=== PATIENT | female | born 1950 | race Caucasian/White ===

== ENCOUNTER 2016-10-12 07:50 | Inpatient (IN) | payer OTHER ==
--- NOTE | 2016-09-08 08:51 | PAT Medication Instructions ---
Service Date Sep 08, 2016. Current Home Medication List Albuterol Sulfate (Proair Respiclick), 2 PUFFS INH Q4 PRN for SOB/Wheezing Aspirin Enteric Coated (Ecotrin Or Generic *), 81 MG PO QPM Calcitriol (Rocaltrol Cap), 0.25 MCG PO MWF Calcium/Vitamin D (Caltrate 600 Plus *), 1 TAB PO BID Escitalopram (Lexapro), 10 MG PO QPM Ferrous Sulfate (Iron), 1 TAB PO BID Fish Oil ([place]-3), 1 CAP PO BID Glimepiride (Glimepiride), 8 TAB PO QAM Montelukast Sodium (Montelukast Sodium), 1 TAB PO HS Oxygen (Oxygen), 2 LITERS NA HS Ranitidine (Zantac), 150 MG PO BID Medication Instructions For Your Scheduled Surgery - Hold the following medications 2 weeks prior to surgery: Fish Oil ([place]-3), 1 CAP PO BID - Hold the following medications the morning of surgery: Calcitriol (Rocaltrol Cap), 0.25 MCG PO MWF Glimepiride (Glimepiride), 8 TAB PO QAM Ferrous Sulfate (Iron), 1 TAB PO BID Calcium/Vitamin D (Caltrate 600 Plus *), 1 TAB PO BID - Take the following medications the morning of surgery with a sip of water OTHERWISE NOTHING TO EAT OR DRINK AFTER MIDNIGHT: Ranitidine (Zantac), 150 MG PO BID Albuterol Sulfate (Proair Respiclick), 2 PUFFS INH Q4 PRN for SOB/Wheezing (use if needed; BRING TO HOSPITAL) - Take the following medications as scheduled the night before surgery: Ranitidine (Zantac), 150 MG PO BID Montelukast Sodium (Montelukast Sodium), 1 TAB PO HS Aspirin Enteric Coated (Ecotrin Or Generic *), 81 MG PO QPM Ferrous Sulfate (Iron), 1 TAB PO BID Escitalopram (Lexapro), 10 MG PO QPM Calcium/Vitamin D (Caltrate 600 Plus *), 1 TAB PO BID Albuterol Sulfate (Proair Respiclick), 2 PUFFS INH Q4 PRN for SOB/Wheezing If you have any questions please call us at [phone] (Kelly Duong PA-C) or [phone] or [phone]
--- NOTE | 2016-09-08 09:19 | DIAGNOSTIC IMAGING REPORT ---
TWO VIEW CHEST CLINICAL HISTORY: Preoperative examination. FINDINGS: PA and lateral chest radiographs are compared to study dated 02/15/2011. The heart is mildly enlarged and there is atherosclerotic calcification of the thoracic aorta. The pulmonary vasculature is noncongested. Linear atelectasis versus scarring is noted in the left lung base. The lungs and pleural spaces are otherwise clear. There is no pneumothorax. The skeletal structures are osteopenic. Degenerative change is noted throughout the thoracic spine. IMPRESSION: Mild cardiac enlargement with no active disease in the chest. Electronically signed by: Elvin Malloy M.D. 09/08/2016 9:17 AM
[2016-09-08 09:22] LABS: BASO % 0.5 %; BASO ABS # 0.04 K/uL (0-0.2); COMPLETE YES; EOS % 3.9 %; HEMATOCRIT 38.7 % (37-47); IG% 0.3 %; LYMPH % 20.5 %; LYMPH ABS # 1.53 K/uL (1.2-3.4); MEAN CELL VOLUME 90.2 fL (80-100); MEAN CORPUSCULAR HEMOGLOBIN 29.4 pg (25-34); MEAN CORPUSCULAR HGB CONC 32.6 g/dl (32-36); MEAN PLATELET VOLUME 10.7 fL (7.4-10.4); MONO % 5.4 %; NEUT % 69.4 %; PLATELET COUNT 241 K/uL (130-400); RED BLOOD COUNT 4.29 M/uL (4.2-5.4); WHITE BLOOD COUNT 7.46 K/uL (4.8-10.8)
[2016-09-08 09:25] LABS: URINE APPEARANCE CLEAR (CLEAR); URINE BILIRUBIN NEG (NEG); URINE COLOR YELLOW; URINE EPITHELIAL CELL AUTO 20-30 /lpf (0-5); URINE NITRITE NEG (NEG); URINE PH 5.5 (4.5-7.5); URINE SPECIFIC GRAVITY 1.009 (1.000-1.030); UROBILINOGEN NEG (NEG)
[2016-09-08 09:26] LABS: MANUAL MICROSCOPIC REQUIRED? NO; REVIEW REQ? NO
[2016-09-08 09:53] LABS: BUN/CREATININE RATIO 15.2 (10-20); CREATININE 1.8 mg/dl (0.60-1.20); POTASSIUM 4.2 mmol/L (3.5-5.1)
[2016-09-08 10:24] LABS: CALCIUM 9.4 mg/dl (8.5-10.1)
--- NOTE | 2016-10-08 09:06 | HISTORY & PHYSICAL EXAMINATION ---
DATE OF ADMISSION: 10/12/2016 The patient presents to our office with a complaint of lower back pain down the right leg to the foot. This has been ongoing for the past year. No specific injury. Walking reproduces her pain. Stopping and resting alleviates it. 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 She has trialed injections with Dr. Valadez, which provide 1-2 days of relief. Denies bowel or bladder dysfunction. PAST MEDICAL HISTORY: The patient's medical history is significant for arthritis, depression, diabetes, migraines, hypertension, hypercholesterolemia. SURGICAL HISTORY: Significant for bilateral knee replacements, hysterectomy, cholecystectomy. ALLERGIES: MORPHINE. CURRENT MEDICATIONS: Include aspirin 81 mg a day, calcium plus vitamin D 2 tabs daily, lisinopril 5 mg daily, metformin 1000 mg twice a day, oxycodone 10 mg q. 12 hours, Zocor 10 mg in the evening, Coumadin 5 mg as directed. SOCIAL HISTORY: She is . Again, self-employed, cleaning business. Alcohol use none. Tobacco, denies. FAMILY HISTORY: Significant for arthritis, diabetes, high cholesterol, cancer. REVIEW OF SYSTEMS: Significant for fatigue, headaches, nasal congestion, coughing, difficulty walking, depression. PHYSICAL EXAMINATION: VITAL SIGNS: 5 foot tall, 110 pounds. HEENT: Speech appropriate. CARDIOPULMONARY: No gross abnormalities. ABDOMEN: Soft, nondistended. GENITOURINARY: Deferred. NEUROLOGIC: Cranial nerves II-XII grossly intact. MUSCULOSKELETAL: Strength is intact bilateral lower extremities. No focal atrophy. She does favor the right side when ambulating around the room. Neurovascularly intact. ASSESSMENT: Severe stenosis L4-5, degenerative changes L2 to the sacrum, grade 1 spondylolisthesis of L4-5, moderate stenosis L3-4 with retrolisthesis, moderate stenosis L5-S1 with a left paracentral disc herniation. PLAN: At this point in time, she has failed conservative therapy and may consider surgical intervention. This would require lumbar decompression and fusion of L2-3, L3-4, L4-5 and L5-S1. Risks, benefits, pros, cons, and alternatives were outlined in detail. She would like to proceed with the above-mentioned surgical intervention.
[~2016-10-12] VITALS: Ht 152.4 cm; Wt 70.3 kg
[2016-10-12] VITALS (9 sets, daily range): BP systolic 92–194; BP diastolic 57–105; PULSE 67–87; TEMP 36.4–36.9; O2SAT 92–100
--- NOTE | 2016-10-12 07:28 | History & Physical Bridge Note ---
H&P Re-Evaluation Bridge Note: I have examined the patient, reviewed the History & Physical and in the interval since the performance of the History & Physical I have noted the following changes of clinical significance: No changes noted
[~2016-10-12 07:50] MED LIST: ALBU18002 INH; ASPEC81 PO; CALC0.2510 PO; CEFAZOLIN 1000MG/55 ML D5W IV SCH; CLTP PO; ESCI10TA17 PO; FERR1TAB23 PO; GLIM4TAB2 PO; METO1TAB31 PO; MONT1TAB5 PO; OMEG10007 PO; OXGN; SODIUM CHLORIDE 0.9% 1000ML 1,000 ML IV SCH; ZNTT/150 PO
[2016-10-12] MEDS ORDERED: SIMV10TA2 PO (08:04)
[2016-10-12] MEDS ORDERED: DEXAMETHASONE SOD INJ 4 MG/ML VIAL ONE (08:24)
[2016-10-12] MEDS ORDERED: GLYCOPYRROLATE INJ 0.2 MG/ML VIAL ONE ×2 (08:24→12:02)
[2016-10-12] MEDS ORDERED: ONDANSETRON INJ 2 MG/ML 2 ML VIAL ONE (08:24)
[2016-10-12] MEDS ORDERED: NEOSTIGMINE METHYLSULFATE 1 MG/ML 10ML VIAL ONE (08:24)
[2016-10-12] MEDS ORDERED: ROCURONIUM BROMIDE 10 MG/ML 5 ML VIAL ONE ×2 (08:24→10:53)
[2016-10-12] MEDS ORDERED: PROPOFOL IV EMULSION 10 MG/ML 20 ML VIAL IV ONE (08:24)
[2016-10-12] MEDS ORDERED: MIDAZOLAM HCL 1 MG/ML 2ML VIAL ONE (08:24)
[2016-10-12] MEDS ORDERED: FENTANYL CITRATE INJ 50 MCG/1 ML 2 ML VIAL ONE ×2 (08:24→11:02)
[2016-10-12] MEDS ORDERED: LIDOCAINE HCL 2% 2 ML VIAL (20MG/ML) ONE (08:24)
[2016-10-12] MEDS ORDERED: FENTANYL CITRATE INJ 50 MCG/1 ML 2 ML VIAL IV PRN (08:30)
[2016-10-12] MEDS ORDERED: ONDANSETRON INJ 2 MG/ML 2 ML VIAL IV PRN ×2 (08:30→12:00)
[2016-10-12] MEDS ORDERED: EpHEDrine SULFATE INJ 50 MG/ML AMP IV PRN (08:30)
[2016-10-12] MEDS ORDERED: ATROPINE SULFATE 0.1 MG/ML 5ML SYR IV PRN (08:30)
[2016-10-12] MEDS ORDERED: EpHEDrine SULFATE 50MG/5ML SYR ONE (09:52)
[2016-10-12] MEDS ORDERED: PHENYLEPHRINE 100MCG/ML 5ML SYR ONE (09:52)
[2016-10-12] MEDS ORDERED: BUPIVACAINE/EPINEPHRINE 0.5% MPF 1:200,000 30 ML VIAL INJ ONE ×2 (10:34→13:29)
[2016-10-12] MEDS ORDERED: SODIUM CHLORIDE 0.9% 1000ML 1,000 ML IV SCH ×2 (11:53)
--- NOTE | 2016-10-12 11:53 | [facility] Post Operative Brief Note ---
Immediate Operative Summary Operative Date Oct 12, 2016. Pre-Operative Diagnosis Severe Spinal Stenosis Post-Operative Diagnosis Severe Spinal Stenosis Procedure(s) Performed L2-S1 Lumbar Laminectomy, Decompression, Pedicle Screw Fixation, Placement of Interbody Device, Posterolateral Fusion, Application of Autograft versus Allograft, Bone Morphogenetic Protein, Iliac Guide [place] Fixation Latex Allergy - Itching Surgeon Dr. Zhao Flame Annealing Machine Setter Surgeon(s) MIREYA Pratt Estimated Blood Loss 300 Findings stenosis Specimens non per surgeon
[2016-10-12] MEDS ORDERED: NALOXONE HCL 0.4 MG/1 ML VIAL/CARP IV PRN ×3 (12:00)
[2016-10-12] MEDS ORDERED: SOD PHOSPHATE/SOD BIPHOSPHATE ENEMA 132 ML BTL PR PRN (12:00)
[2016-10-12] MEDS ORDERED: hydrOXYzine HCL 25 MG TAB PO PRN (12:00)
[2016-10-12] MEDS ORDERED: FAMOTIDINE 20 MG TAB PO PRN (12:00)
[2016-10-12] MEDS ORDERED: HYDROmorphone INJ 0.5 MG/0.5 ML SYR IV PRN (12:00)
[2016-10-12] MEDS ORDERED: METOCLOPRAMIDE HCL INJ 5 MG/ML 2 ML VIAL IV PRN (12:00)
[2016-10-12] MEDS ORDERED: LORAZEPAM 0.5 MG TAB PO PRN (12:00)
[2016-10-12] MEDS ORDERED: PROMETHAZINE HCL INJ 12.5 MG in SODIUM CHLORIDE 0.9% 50ML 50 ML IV PRN (12:00)
[2016-10-12] MEDS ORDERED: MAGNESIUM HYDROXIDE SUSP 30 ML UDC PO PRN (12:00)
[2016-10-12] MEDS ORDERED: LORAZEPAM INJ 0.5 MG in SYRINGE 0 ML IV PRN (12:00)
[2016-10-12] MEDS ORDERED: DO NOT ADMINISTER PNEUMOCOCCAL VACCINE PRN ×2 (12:00)
[2016-10-12] MEDS ORDERED: ALUMINUM/MAGNESIUM SUSP 30 ML UDC PO PRN (12:00)
[2016-10-12] MEDS ORDERED: BISACODYL 10 MG SUPP PR PRN (12:00)
[2016-10-12] MEDS ORDERED: ACETAMINOPHEN 500 MG TAB PO PRN (12:00)
[2016-10-12] MEDS ORDERED: DO NOT ADMINISTER FLU VACCINE PRN ×3 (12:00)
[2016-10-12] MEDS ORDERED: ACETAMINOPHEN IV 100 ML IV PRN (12:00)
[2016-10-12] MEDS ORDERED: HYDROmorphone HCL 0.5MG/ML 50 ML CASSETTE IV PRN ×2 (12:00)
[2016-10-12] MEDS ORDERED: BACITRACIN 50000 UNIT VIAL IR ONE (12:10)
[2016-10-12] MEDS ORDERED: FLOSEAL HEMOSTATIC MATRIX 10ML TOP ONE (12:10)
--- NOTE | 2016-10-12 12:19 | OPERATIVE REPORT ---
DATE OF OPERATION: 10/12/2016 PREOPERATIVE DIAGNOSES: Spinal stenosis, spondylolisthesis. POSTOPERATIVE DIAGNOSES: Same. PROCEDURES PERFORMED: 1. Lumbar decompression and medial facetectomy and foraminotomy L2-3, L3-4, L4-5, L5-S1. 2. Posterior spinal fusion L2-3, L3-4, L4-5, L5-S1. 3. Bilateral SI joint fusion. 4. Placement of posterior segmental instrumentation using Medicrea rods and screws, L2, L3, L4, L5 and S1 with bilateral iliac bolts as well as a crosslink. 5. Placement interbody fusion L5-S1. 6. Placement of PEEK cage 10 x 22 mm at L5-S1. 7. Placement of locally harvested morcellized autograft posterior gutters. 8. Placement of Infuse collagen sponge combined with Mastergraft in the posterior gutters and Gayla bone grafting in the interbody space. SURGEON: Dr. Issac Zhao. BEATER ROOM HELPER: MIREYA Cardona. Due to the complex nature of the procedure, the entire surgery was performed with the teachers' assistant of MIREYA Cardona. The hardware sales assistant, under direct supervision, was involved in the actual performance of all aspects of the surgical procedure including hemostasis, tissue retraction and incision, instrument management, patient positioning, and wound closure. ANESTHESIA: General. DISPOSITION: The patient awakened and taken to PACU in stable condition. HISTORY OF PATIENT'S PROBLEMS: This is a 66-year-old female who presents with above-mentioned diagnoses after failing an extensive course of nonoperative care, elected to undergo the above-mentioned procedure. Risks, benefits, pros, cons, and alternatives were outlined in detail preoperatively. DESCRIPTION OF PROCEDURE: The patient was met preoperatively, case discussed and all questions were addressed. At that point, the patient was taken back to operative suite and after undergoing successful general endotracheal intubation via department of anesthesia was placed in prone position on Konstantin table atop Donte frame. All bony prominences were well padded and the eyes were inspected to ensure there was no external pressure placed upon them. At this point, the lumbar spine was prepped and draped in normal sterile fashion. Sharp dissection with the assistance of Bovie cautery was performed down to and exposing the lamina and transverse processes of L2, L3, L4, L5 and sacral ala bilaterally. From a caudal to cephalad fashion, complete laminectomy of L5, L4, L3 and L2 was performed addressing severe lateral recess foraminal disease. Pedicle screws were then placed in L2, L3, L4, L5 and S1 levels bilaterally with assistance of fluoroscopy as well as bilateral iliac bolts. Then through a transforaminal approach on the right, a complete discectomy of L5-S1 was performed, endplates curetted to subcortical bleeding bone and a 10 x 22 mm PEEK cage filled with Gayla bone grafting tapped into position. The appropriate size rods were then placed, locked into final position bilaterally and the posterior aspect of the bilateral SI joints was exposed, burred to subcortical bleeding bone, and packed with Infuse collagen sponge and Mastergraft as well as a burning the transverse processes of L2, L3, L4, L5, S1 and sacral ala bilaterally. Infuse collagen sponge combined with Mastergraft was also place in the posterior gutters of this region as well as crosslink was locked into position. A 7 flat TAM drain inserted. Incision was closed with 1-0 Vicryl in the fascia, 2-0 Vicryl subcutaneously, 4-0 Monocryl for final skin closure. Steri-Strips and sterile dressing placed. The patient was awakened and taken to PACU in stable condition. I attest to the content of the Intraoperative Record and any orders documented therein. Any exceptio ns are noted below.
[2016-10-12] MEDS ORDERED: SODIUM CHLORIDE 0.9% INJ 10 ML VIAL ONE (12:21)
[2016-10-12] MEDS ORDERED: NALOXONE HCL 0.4 MG/1 ML VIAL/CARP ONE (12:21)
[2016-10-12] MEDS ORDERED: ESMOLOL HCL 10 MG/ML 10 ML VIAL ONE (12:32)
[2016-10-12] MEDS ORDERED: HYDROmorphone HCL 0.5MG/ML 50 ML CASSETTE ONE (12:37)
--- NOTE | 2016-10-12 12:38 | DIAGNOSTIC IMAGING REPORT ---
INTRAOPERATIVE RADIOGRAPHS CLINICAL HISTORY: L2-S1 spinal fusion. Fluoroscopy time: 29 seconds. FINDINGS: 4 spot fluoroscopic views of the lumbar spine are presented. There are postoperative changes from L5 to S1 discectomy with laminectomy and posterior fusion from L2 through S1. Interpedicular screws are present at all levels. Iliac bolts are in place. The orthopedic hardware appears intact. IMPRESSION: Intraoperative images from L2 to S1 spinal fusion as above. Electronically signed by: Elvin Malloy M.D. 10/12/2016 12:36 PM Dictated Date/Time: 10/12/2016 12:35 PM
[2016-10-12] MEDS ORDERED: NURSING VERBAL MED ORDER ONE ×2 (13:15→13:30)
[2016-10-12] MEDS: SODIUM CHLORIDE 0.9% 1000ML 1,000 ML IV SCH ×2 (13:29→18:19)
--- NOTE | 2016-10-12 13:34 | Anesthesiology Progress Note ---
Anesthesia Post Op Note Date & Time Oct 12, 2016 at 13:33 Vital Signs Pain Intensity: 1 Vital Signs Past 12 Hours Date Time Temp Pulse Resp B/P Pulse Ox O2 Delivery O2 Flow Rate FiO2 10/12/16 12:58 36.5 114/70 10/12/16 12:55 92 19 10/12/16 12:55 92 19 138/66 98 10/12/16 12:53 114/70 10/12/16 12:50 90 19 140/66 100 10/12/16 12:50 91 19 10/12/16 12:48 112/69 10/12/16 12:45 94 19 10/12/16 12:45 95 19 145/67 99 10/12/16 12:43 115/72 10/12/16 12:40 94 19 142/66 98 10/12/16 12:40 94 19 10/12/16 12:38 112/68 10/12/16 12:35 91 19 97 10/12/16 12:35 91 19 10/12/16 12:33 122/72 10/12/16 12:30 97 19 10/12/16 12:30 97 19 98 10/12/16 12:28 133/78 10/12/16 12:25 36.5 108 16 133/78 98 Mask 10 10/12/16 08:49 161/80 10/12/16 08:17 36.4 71 20 194/105 97 Room Air Notes Mental Status: alert / awake / arousable, participated in evaluation Pt Amnestic to Procedure: Yes Nausea / Vomiting: adequately controlled Pain: adequately controlled Airway Patency, RR, SpO2: stable & adequate BP & HR: stable & adequate Hydration State: stable & adequate Anesthetic Complications: no major complications apparent
[2016-10-12] MEDS ORDERED: MEPERIDINE HCL 25 MG/ML CARP IV PRN (15:15)
[2016-10-12] MEDS: DEXAMETHASONE INJ 6 MG in SYRINGE 0 ML IV SCH (17:33)
[2016-10-12] MEDS: CEFAZOLIN IV 1,000 MG in DEXTROSE 5% 50ML 50 ML IV SCH (17:33)
[2016-10-12] MEDS: RANITIDINE HCL 150 MG TAB PO SCH (21:03)
[2016-10-12] MEDS: ESCITALOPRAM OXALATE 10 MG TAB PO SCH (21:03)
[2016-10-12] MEDS: MONTELUKAST SOD 10 MG TAB PO SCH (21:03)
[2016-10-12] MEDS: DOCUSATE SODIUM/SENNA 50/8.6MG TAB PO SCH (21:04)
[2016-10-12] MEDS: ASPIRIN 81 MG ECTAB PO SCH (21:04)
[2016-10-12] MEDS: OXYCODONE HCL IR 5 MG TAB (IMMEDIATE RELEASE) PO PRN (23:29)
[2016-10-13] MEDS: SODIUM CHLORIDE 0.9% 1000ML 1,000 ML IV SCH (01:15)
[2016-10-13] MEDS: CEFAZOLIN IV 1,000 MG in DEXTROSE 5% 50ML 50 ML IV SCH (01:15)
[2016-10-13] MEDS: DEXAMETHASONE INJ 6 MG in SYRINGE 0 ML IV SCH ×2 (01:15→09:27)
[2016-10-13 02:40] VITALS: BP 115/71; PULSE 83; TEMP 36.5; O2SAT 97
[2016-10-13] MEDS ORDERED: DC PCA ONE (06:00)
[2016-10-13] MEDS ORDERED: NURSING VERBAL MED ORDER ONE (06:15)
[2016-10-13 06:24] LABS: BASO % 0.1 %; BASO ABS # 0.01 K/uL (0-0.2); COMPLETE YES; HEMATOCRIT 31.5 % (37-47); IG% 0.4 %; LYMPH % 3.7 %; LYMPH ABS # 0.51 K/uL (1.2-3.4); MEAN CELL VOLUME 93.8 fL (80-100); MEAN CORPUSCULAR HEMOGLOBIN 30.1 pg (25-34); MEAN CORPUSCULAR HGB CONC 32.1 g/dl (32-36); MEAN PLATELET VOLUME 10.9 fL (7.4-10.4); NEUT % 93.8 %; PLATELET COUNT 202 K/uL (130-400); RED BLOOD COUNT 3.36 M/uL (4.2-5.4); WHITE BLOOD COUNT 13.67 K/uL (4.8-10.8)
[2016-10-13 06:56] LABS: CREATININE 1.8 mg/dl (0.60-1.20)
[2016-10-13 06:57] LABS: BUN/CREATININE RATIO 20.4 (10-20); CALCIUM 7.6 mg/dl (8.5-10.1); POTASSIUM 4.2 mmol/L (3.5-5.1)
[2016-10-13 07:06] LABS: BETA-HYDROXYBUTYRATE 1.01 mg/dL (0.2-2.81)
[2016-10-13 08:01] VITALS: BP 114/70; PULSE 90; TEMP 36.6; O2SAT 97
--- NOTE | 2016-10-13 08:17 | PROGRESS NOTE ---
DATE: 10/13/2016 Postop day 1. Back pain is controlled. Leg pain improved. Vital signs stable. T-max 36.6. TAM drained 100 mL over the last shift. Hematocrit this a.m. is 31.5. On exam, the patient is in chair at bedside, is quite comfortable, has good strength to testing. ASSESSMENT: Status post multilevel lumbar decompression and fusion. PLAN: At this time, we will initiate physical therapy, advance her bowel regimen, anticipate discharge latter half of this week. We will monitor her H\T\H.
[2016-10-13] MEDS: CALCITRIOL 0.25 MCG CAP PO SCH (08:27)
[2016-10-13] MEDS: RANITIDINE HCL 150 MG TAB PO SCH ×2 (08:27→21:07)
[2016-10-13] MEDS: SIMVASTATIN 10 MG TAB PO SCH (08:27)
[2016-10-13] MEDS: METOPROLOL SUCC 25MG EXT REL TAB PO SCH (08:28)
[2016-10-13] MEDS: OXYCODONE HCL IR 5 MG TAB (IMMEDIATE RELEASE) PO PRN ×2 (09:27→16:55)
--- NOTE | 2016-10-13 09:47 | Anesthesiology Progress Note ---
Anesthesia Post Op Note Date & Time Oct 13, 2016 at 09:45 Vital Signs Pain Intensity: 5.0 Vital Signs Past 12 Hours Date Time Temp Pulse Resp B/P Pulse Ox O2 Delivery O2 Flow Rate FiO2 10/13/16 08:01 36.6 90 16 114/70 97 Room Air 10/13/16 07:22 Nasal Cannula 3.0 10/13/16 02:40 36.5 83 16 115/71 97 Nasal Cannula 2.0 10/12/16 23:30 Nasal Cannula 3.0 10/12/16 23:02 36.4 80 16 106/66 96 Nasal Cannula 2.0 Notes Mental Status: alert / awake / arousable, participated in evaluation Pt Amnestic to Procedure: Yes Nausea / Vomiting: adequately controlled Pain: adequately controlled Airway Patency, RR, SpO2: stable & adequate BP & HR: stable & adequate Hydration State: stable & adequate Anesthetic Complications: no major complications apparent
--- NOTE | 2016-10-13 10:52 | Clinical Documentation Query ---
RAFAEL Cobb : CLINICAL DOCUMENTATION QUERY Patient is a 66 year old female who on 10/12 underwent elective posterolateral lumbosacral fusion. Admission BUN, creatinine, and estimated GFR noted to be 27 mg/dl, 1.80 mg/dl, and 29 ml/min. There is no documented history of chronic kidney disease and historical EMR data from 2010 demonstrated normal renal function. Please clarify as clinically appropriate. In your clinical opinion is this patient being managed for: ( ) Acute kidney failure OR ( ) Chronic kidney disease stage 4 ( ) Other explanation of clinical findings (Please Explain) ( ) Unable to determine (Please Define) ( ) Need to Discuss ( ) Not Agree The medical record reflects the following clinical findings, treatment, and risk factors. Clinical Indicators: As above Treatment: IVF, serial chemistries. Risk Factors: Age, hypertension, diabetes, medications Please clarify and document your clinical opinion in the progress notes and discharge summary. Terms such as "probable", "suspected", "likely", "questionable", "possible", or "still to be ruled out" are acceptable. IF IN AGREEMENT, YOU MUST DOCUMENT ABOVE DIAGNOSTIC STATEMENT IN DAILY PROGRESS NOTES AND DISCHARGE SUMMARY. This document is not part of the patient's record. Thank You, Pedro Mathew, RICKY [phone]
[2016-10-13 11:18] VITALS: BMI 30.3
[2016-10-13 12:01] VITALS: BP 111/68; PULSE 74; TEMP 36.6; O2SAT 93
[2016-10-13] MEDS ORDERED: PHARMACY GLYCEMIC MGMT CONSULT PRN (12:15)
[2016-10-13] MEDS ORDERED: GLUCAGON FOR INJ 1 MG VIAL SQ PRN (12:15)
[2016-10-13] MEDS ORDERED: DEXTROSE 50% 50 ML SYR IV PRN (12:15)
[2016-10-13] MEDS ORDERED: GLUCOSE 10 TABS/TUBE PO PRN (12:15)
[2016-10-13] MEDS ORDERED: GLUCOSE 40% GEL 15 GM TUBE PO PRN (12:15)
[2016-10-13] MEDS ORDERED: INSULIN HUMAN REGULAR PER UNIT 10 UNITS in SYRINGE 9.9 ML IV SCH (13:00)
[2016-10-13] MEDS ORDERED: INSULIN ASPART 100 UNITS/ML 3 ML PEN SC SCH (13:15)
--- NOTE | 2016-10-13 13:23 | Pharmacy Progress Note ---
Glycemic Control Intl Consult Date of Service Oct 13, 2016. Scope Glycemic Pharmacist consulted by Dr Zhao on 10/13/16 for glycemic control and to write orders per [facility] inpatient glycemic control protocol Objective Weight (Kilograms): 70.300 Accuchecks BSG (last 24hrs): Test 10/12/16 13:23 10/13/16 05:23 10/13/16 07:46 10/13/16 12:48 Bedside Glucose 192 mg/dl (70-90) 339 mg/dl (70-90) 390 mg/dl (70-90) Random Glucose 322 mg/dl (70-99) Laboratory Data (last 24hrs) Test 10/13/16 05:23 Anion Gap 12.0 mmol/L BUN/Creatinine Ratio 20.4 Blood Urea Nitrogen 37 mg/dl Creatinine 1.80 mg/dl Potassium Level 4.2 mmol/L Sodium Level 140 mmol/L White Blood Count 13.67 K/uL Red Blood Count 3.36 M/uL Hemoglobin 10.1 g/dL Hematocrit 31.5 % Mean Corpuscular Volume 93.8 fL Mean Corpuscular Hemoglobin 30.1 pg Mean Corpuscular Hemoglobin Concent 32.1 g/dl Platelet Count 202 K/uL Mean Platelet Volume 10.9 fL Neutrophils (%) (Auto) 93.8 % Lymphocytes (%) (Auto) 3.7 % Monocytes (%) (Auto) 2.0 % Eosinophils (%) (Auto) 0.0 % Basophils (%) (Auto) 0.1 % Neutrophils # (Auto) 12.82 K/uL Lymphocytes # (Auto) 0.51 K/uL Monocytes # (Auto) 0.27 K/uL Eosinophils # (Auto) 0.00 K/uL Basophils # (Auto) 0.01 K/uL HbA1c pending 10/14/16 Recent Pertinent Medications Outpatient Anti-diabetic Regimen: * Glimepiride 8 ma qam * A1c = 7.3 % 08/11/16, repeat pending 10/14/16 to assess recent glycemic control The patient is currently receiving: * Basal insulin: none * Correctional Insulin: none * Prandial insulin: none * Oral Agents: none Risk Factors for Insulin Resistance: * Steroids: Dexamethasone 4 mg in OR 10/12, then 6 mg q8h x3, last dose 10/13 @0927 * Infection: no, had cefazolin perioperatively * IVF: NS @ 150 ml/hr, now dc'd * Recent Surgery: POD#1 spinal surgery * Diet:type 2 diabetic Assessment & Plan ASSESSMENT: * ADA & AACE recommend a goal blood sugar range 140-180 mg/dl for the majority of critically ill & non-critically ill patients. However, more stringent targets may be selected in individual cases. * 66 yo type 2 diabetic,fairly well-controlled in past on oral meds. A1c pending to assess recent glycemic control. BSG's over 300 due to lack of insulin coverage and steroid effect. Postprandial hyperglycemic effect of dexamethasone may persist 48-72 hr. Will give IV bolus for immediate effect and start weight-based Novolog coverage. Will reassess in am. PLAN FOR INPATIENT GLYCEMIC CONTROL: * Holding outpatient oral diabetes medications * No basal insulin at this time * Correctional Insulin with NOVOLOG per scale ACHS or Q6hrs while NPO * Goal Range: Low 110 mg/dL - High 150 mg/dL * Correction Factor: 35 mg/dL/unit * Nutritional / Prandial insulin per carb ratio of 1 unit per 11 grams CHO consumed Please note that the plan above was derived based on current level of insulin resistance and hospital stress. These recommendations are appropriate for inpatient admission only. Plan of care upon discharge will need to be reassessed to avoid potential outpatient hypo/hyperglycemia. Thank you.
[2016-10-13 15:06] VITALS: BP 116/69; PULSE 69; TEMP 36.6; O2SAT 91
[2016-10-13] MEDS: INSULIN ASPART 100 UNITS/ML 3 ML PEN SC SCH ×2 (18:01→21:12)
[2016-10-13] MEDS: ASPIRIN 81 MG ECTAB PO SCH (21:07)
[2016-10-13] MEDS: ESCITALOPRAM OXALATE 10 MG TAB PO SCH (21:07)
[2016-10-13] MEDS: MONTELUKAST SOD 10 MG TAB PO SCH (21:07)
[2016-10-13] MEDS: DOCUSATE SODIUM/SENNA 50/8.6MG TAB PO SCH (21:07)
[2016-10-13 23:25] VITALS: BP 130/74; PULSE 73; TEMP 36.7; O2SAT 96
[2016-10-14] MEDS ORDERED: INSULIN ASPART 100 UNITS/ML 3 ML PEN SC SCH (02:00)
[2016-10-14 03:40] VITALS: BP 114/71; PULSE 71; TEMP 36.6; O2SAT 98
[2016-10-14] MEDS: POLYETHYLENE (MIRALAX) 17 GM PACK PO SCH ×3 (05:19→17:41)
[2016-10-14] MEDS: OXYCODONE HCL IR 5 MG TAB (IMMEDIATE RELEASE) PO PRN ×2 (05:23→14:10)
[2016-10-14 06:48] VITALS: BP 132/76; PULSE 86; TEMP 36.6; O2SAT 96
[2016-10-14 07:31] LABS: ESTIMATED AVERAGE GLUCOSE 174 mg/dl; HA1C FLAG Normal (Normal)
[2016-10-14] MEDS: CALCITRIOL 0.25 MCG CAP PO SCH (07:38)
[2016-10-14] MEDS: METOPROLOL SUCC 25MG EXT REL TAB PO SCH (07:38)
[2016-10-14] MEDS: RANITIDINE HCL 150 MG TAB PO SCH ×2 (07:38→21:40)
[2016-10-14] MEDS: SIMVASTATIN 10 MG TAB PO SCH (07:38)
[2016-10-14] MEDS: INSULIN ASPART 100 UNITS/ML 3 ML PEN SC SCH ×4 (07:43→21:48)
[2016-10-14] MEDS ORDERED: RXC5 PO (07:50)
--- NOTE | 2016-10-14 07:51 | Discharge Instructions ---
Discharge Instructions Admission Reason for Admission: Lumbar Spinal Stenosis Discharge Discharge Diagnosis / Problem: stenosis Discharge Goals Goal(s): Improve function Activity Recommendations Activity Limitations: per Instructions/Follow-up section . Instructions / Follow-Up Instructions / Follow-Up ACTIVITY RECOMMENDATIONS: SELF CARE INSTRUCTIONS AFTER THORACIC/LUMBAR FUSIONS 1. You may walk to your tolerance. It is good exercise for your legs and back. Expect some back and intermittent leg aches and pains. 2. You may perform "counter-top" level activities (make a sandwich, kun with a project, etc.). 3. No bending or lifting of more than 10 pounds or back twisting of any nature (roll like a log when turning in bed). 4. You may ride in a car for 20-30 minutes at a time. No driving until after your first visit with your doctor. 5. Frequent changes of position and restricting sitting to 30 minutes at a time will help limit the amount of back spasms and stiffness you may experience. 6. You may discontinue the use of ambulatory aids (cane, crutches, etc.) once your strength and confidence allow. 7. You may business mgr the shower and let water strike your incision when you arrive home at least once daily. Do not take a tub bath, sit in a hot tub or go into a swimming pool until after your first recheck in the office. SPECIAL CARE INSTRUCTIONS: VERY IMPORTANT TO READ AND REVIEW A. Your surgical incision has been closed with a cosmetic suture under the skin that will dissolve in about 6 weeks. In 14 days, you can use a pair of clean scissors and cut the suture that is left outside of the skin at the ends of your incision. 1. The small skin tapes can be removed 7 days after surgery if they have not fallen off by that point. 2. You may keep the wound open to air as much as possible to promote healing after post-op day number 5 unless told otherwise by your doctor. 3. If you think the wound looks like it is becoming infected (redness or worsening drainage) and/or you are experiencing fever, chill or worsening back pain and muscle spasms, contact the office so that we may evaluate you as soon as possible. B. Complications are uncommon, but please contact us if you have any signs or symptoms of: 1. wound infection (fever higher than 102.5 degrees F, redness, separation of wound, drainage, or increasing pain from the incision) 2. blood clots in legs (pain, swelling, redness and warmth in legs) 3. urinary tract infection (fever higher than 102.5 degrees F, burning upon urination or increased frequency of urination) 4. nerve problems (inability to walk on your toes or heels, numbness, loss of bowel or bladder control) 5. any other symptoms that concern you C. Please call the office at if you have any concerns or questions about your operation or recovery. D. No smoking! Smoking drastically decreases the chance of a solid fusion. E. Do not take any anti-inflammatory medications (Indocin, Advil, Motrin, Aspirin, Naprosyn, etc.) as these may inhibit the chance of a solid fusion. Tylenol is okay to take for pain. MANAGING PAIN AFTER SPINAL SURGERY 1. Narcotic medication is intended for short-term use and will be provided for surgical pain. Surgical pain usually lasts for a period of 4-6 weeks. Narcotic medication includes Percocet, Vicodin, Darvocet, Tylenol #3 or Lortab. 2. Longer-term pain is more appropriately treated with non-narcotic medication such as Tylenol ES. 3. Muscle spasm is not appropriately treated with narcotics. Muscle relaxers such as Soma, Flexeril or Skelaxin can be used along with Tylenol ES. 4. Remember that we all live with some "aches and pains". This is not unusual or uncommon after an injury or as we get older. a. Back pain is expected and may include muscle spasms for 4 to 6 weeks after surgery. The pain should gradually improve. If the pain worsens for no apparent reason, please contact the office. b. Intermittent leg pain may also be experienced and should not be concerned about unless it worsens for no apparent reason. If so, please contact the office. 5. We will provide appropriate medication within the normal guidelines of their prescribed use. We will also be very cautious and aware of potential abuse and extended duration of patients' medication needs. a. Pain medications are for your comfort and to assist with sleep and rest so that the tissue can heal. They are not provided in order to return to normal activity and should not be used through the day. To do so or worsening pain at night can result from ongoing tissue damage and development of tolerance to the prescribed medicine. 6. Please allow 2-3 days to process refills. Prescriptions will not be mailed but must be picked up at the office. FOLLOW UP VISIT: Keep your scheduled follow-up appointment. Any questions, please call the office at . Current Hospital Diet Patient's current hospital diet: Diabetes Type 2 Diet Discharge Diet Recommended Diet: Regular Diet Procedures Procedures Performed: L2-S1 Lumbar Laminectomy, Decompression, Pedicle Screw Fixation, Placement of Interbody Device, Posterolateral Fusion, Application of Allograft, Bone Morphogenetic Protein, Iliac [place] Fixation Latex Allergy - Itching Pending Studies Studies pending at discharge: no Laboratory Results Hemoglobin A1c Test 10/14/16 05:18 Range/Units Estimated Average Glucose 174 mg/dl Hemoglobin A1c 7.7 H 4.5-5.6 % Medical Emergencies . Who to Call and When: Medical Emergencies: If at any time you feel your situation is an emergency, please call 911 immediately. . Non-Emergent Contact Non-Emergency issues call your: Primary Care Provider . "Provider Documentation" section prepared by Issac Zhao. VTE Core Measure Inpt VTE Proph given/why not?: Christy De Jesus, SCD's
[2016-10-14 09:00] LABS: HEMATOCRIT 29.6 % (37-47)
[2016-10-14 11:12] VITALS: Ht 152.4 cm; Wt 70.3 kg
--- NOTE | 2016-10-14 13:26 | PROGRESS NOTE ---
DATE: 10/14/2016 SUBJECTIVE: Postop day #2. Back pain is controlled. Leg pain improved. Vital signs stable. T-max 36.6. TAM drained 40 mL over the last shift. Hematocrit stable. PHYSICAL EXAMINATION: The patient is in chair at bedside. Has good strength to testing. Appears comfortable. ASSESSMENT: Status post multilevel lumbar decompression and fusion. PLAN: At this time, will maintain the TAM drain today. Continue with physical therapy and bowel regimen and anticipate home tomorrow with home health.
[2016-10-14 15:09] VITALS: BP 101/62; PULSE 80; TEMP 36.6; O2SAT 98
--- NOTE | 2016-10-14 15:12 | Pharmacy Progress Note ---
Glycemic Control: Progress Nt Date of Service Oct 14, 2016. Scope Glycemic Pharmacist consulted by Dr Zhao on 10/13/16 for glycemic control and to write orders per [facility] inpatient glycemic control protocol. Objective Accuchecks BSG (last 24hrs): Test 10/13/16 21:01 10/14/16 02:02 10/14/16 12:07 Bedside Glucose 286 mg/dl (70-90) 253 mg/dl (70-90) 179 mg/dl (70-90) Laboratory Data (last 24hrs) Test 10/14/16 05:18 Hemoglobin A1c 7.7 % HbA1c: Test 10/14/16 05:18 Hemoglobin A1c 7.7 % (4.5-5.6) H Recent Pertinent Medications Outpatient Anti-diabetic Regimen: * Glimepiride 8mg PO QAM The patient is currently receiving: * Basal insulin: None * Correctional Insulin: Novolog Correction per scale ACHS Goal Range: Low 110 mg/dL - High 150 mg/dL Correction Factor: 35 mg/dL/unit * Prandial insulin: Per carb ratio of 1 unit per 15 grams CHO consumed * Oral Agents: On hold for admission Risk Factors for Insulin Resistance: * Steroids * Recent Surgery * Diet Assessment & Plan ASSESSMENT: * 66yo T2DM female with well controlled diabetes as an outpatient. A1c increased from 7.3% in August to 7.7% today. Most likely d/t stopping metformin ~ 2 months d/t declined kidney function. Patient will need additional antidiabetic agent to maintain adequate control. * Sustained hyperglycemia over the past 24hrs d/t high dose IV dexamethasone and no basal insulin given. Patient is only ordered bolus insulin with NovoLog per conservative weight based parameters. * Would like to start basal insulin but possible discharge in the next 24hrs. Oral antidiabetic agents will be resumed at discharge. Insulin + sulfonylureas are likely to cause hypo. Will not start basal insulin at this time - add RTC accuchecks. * ADA & AACE recommend a goal blood sugar range 140-180 mg/dl for the majority of critically ill & non-critically ill patients. However, more stringent targets may be selected in individual cases. Will utilize more stringent goal range of 110-140mg/dl for a well controlled diabetic and to facilitate healing post-operatively. PLAN FOR INPATIENT GLYCEMIC CONTROL: * Holding outpatient oral diabetes medications * Correctional Insulin with NOVOLOG per scale ACHS or Q6hrs while NPO * Goal Range: Low 110 mg/dL - High 140 mg/dL * Correction Factor: 35 mg/dL/unit * Nutritional / Prandial insulin per carb ratio of 1 unit per 10 grams CHO consumed RECOMMENDATIONS FOR DISCHARGE: * Pt will need another antidiabetic medication to replace metformin which was recently stopped. Pt can work with PCP to determine which agent based on cost, side effects, hypo potential, etc would be best. * Initially, I would recommend Januvia, Actos, or SGLT2 inhibitor. * Please note that the plan above was derived based on current level of insulin resistance and hospital stress. These recommendations are appropriate for inpatient admission only. Plan of care upon discharge will need to be reassessed to avoid potential outpatient hypo/hyperglycemia. Thank you.
[2016-10-14] MEDS: ESCITALOPRAM OXALATE 10 MG TAB PO SCH (21:40)
[2016-10-14] MEDS: ASPIRIN 81 MG ECTAB PO SCH (21:40)
[2016-10-14] MEDS: DOCUSATE SODIUM/SENNA 50/8.6MG TAB PO SCH (21:40)
[2016-10-14] MEDS: MONTELUKAST SOD 10 MG TAB PO SCH (21:40)
[2016-10-14 23:06] VITALS: BP 107/67; PULSE 87; TEMP 37; O2SAT 97
[2016-10-15] MEDS: POLYETHYLENE (MIRALAX) 17 GM PACK PO SCH (00:26)
[2016-10-15] MEDS: INSULIN ASPART 100 UNITS/ML 3 ML PEN SC SCH ×3 (00:29→08:51)
[2016-10-15] MEDS ORDERED: NURSING VERBAL MED ORDER ONE (03:30)
[2016-10-15] MEDS: OXYCODONE HCL IR 5 MG TAB (IMMEDIATE RELEASE) PO PRN ×2 (04:10→11:17)
[2016-10-15 07:15] VITALS: BP 115/73; PULSE 91; TEMP 36.8; O2SAT 91
--- NOTE | 2016-10-15 08:39 | DISCHARGE SUMMARY ---
PRINCIPAL DIAGNOSIS: Spinal stenosis. HOSPITAL COURSE FOLLOWS: On October 12 the patient underwent multilevel lumbar decompression and fusion, tolerated this well and taken to the orthopedic floor postoperatively. Postop day #1 she was up and ambulatory, progressed to postop day 2. Bowels were working well. Hematocrit stable. Subsequently discharged home on 10/15/2016. Discharge orders and instructions found in the chart for further review.
[2016-10-15] MEDS: CALCITRIOL 0.25 MCG CAP PO SCH (08:40)
[2016-10-15] MEDS: RANITIDINE HCL 150 MG TAB PO SCH (08:41)
[2016-10-15] MEDS: SIMVASTATIN 10 MG TAB PO SCH (08:42)
[2016-10-15] MEDS: METOPROLOL SUCC 25MG EXT REL TAB PO SCH (08:45)
[2016-10-15 08:46] VITALS: BP 109/66
[2016-10-15 10:30] VITALS: BP 109/66; PULSE 91; TEMP 36.8; O2SAT 91
== END 2016-10-15 11:31 | disposition home health service (06) | DRG 460 ==
LOC: ENRESERVTM → ENRESERVDT → C.ACU 07:50 → C.3E 08:00
PROVIDERS: ADMIT Orthopaedic Surgery Orthopaedic Surgery of the Spine; ATTEND Orthopaedic Surgery Orthopaedic Surgery of the Spine
PROC: 0SG30AJ Fusion of Lumbosacral Joint with Interbody Fusion Device, Posterior Approach, Anterior Column, Open Approach (ICD-10-PCS; principal; 2016-10-12 10:00)
PROC: 0SG3071 Fusion of Lumbosacral Joint with Autologous Tissue Substitute, Posterior Approach, Posterior Column, Open Approach (ICD-10-PCS; principal; 2016-10-12 10:00)
PROC: 0SG704Z Fusion of Right Sacroiliac Joint with Internal Fixation Device, Open Approach (ICD-10-PCS; principal; 2016-10-12 10:00)
PROC: 0SG707Z Fusion of Right Sacroiliac Joint with Autologous Tissue Substitute, Open Approach (ICD-10-PCS; principal; 2016-10-12 10:00)
PROC: 0SG804Z Fusion of Left Sacroiliac Joint with Internal Fixation Device, Open Approach (ICD-10-PCS; principal; 2016-10-12 10:00)
PROC: 0SG807Z Fusion of Left Sacroiliac Joint with Autologous Tissue Substitute, Open Approach (ICD-10-PCS; principal; 2016-10-12 10:00)
PROC: 0ST40ZZ Resection of Lumbosacral Disc, Open Approach (ICD-10-PCS; principal; 2016-10-12 10:00)
PROC: 0SG80KZ Fusion of Left Sacroiliac Joint with Nonautologous Tissue Substitute, Open Approach (ICD-10-PCS; principal; 2016-10-12 10:00)
PROC: 0SG1071 Fusion of 2 or more Lumbar Vertebral Joints with Autologous Tissue Substitute, Posterior Approach, Posterior Column, Open Approach (ICD-10-PCS; principal; 2016-10-12 10:00)
PROC: 0SG70KZ Fusion of Right Sacroiliac Joint with Nonautologous Tissue Substitute, Open Approach (ICD-10-PCS; principal; 2016-10-12 10:00)
PROC: 3E0U0GB Introduction of Recombinant Bone Morphogenetic Protein into Joints, Open Approach (ICD-10-PCS; principal; 2016-10-12 10:00)
DX: M48.06 Spinal stenosis, lumbar region (principal); M48.07 Spinal stenosis, lumbosacral region; M43.16 Spondylolisthesis, lumbar region; M51.27 Other intervertebral disc displacement, lumbosacral region; J45.909 Unspecified asthma, uncomplicated; E11.22 Type 2 diabetes mellitus with diabetic chronic kidney disease; N18.9 Chronic kidney disease, unspecified; E78.00 Pure hypercholesterolemia, unspecified; F41.9 Anxiety disorder, unspecified; F32.9 Major depressive disorder, single episode, unspecified; E66.9 Obesity, unspecified; Z68.30 Body mass index [BMI] 30.0-30.9, adult; Z96.653 Presence of artificial knee joint, bilateral; Z99.81 Dependence on supplemental oxygen; Z79.01 Long term (current) use of anticoagulants; Z79.84 Long term (current) use of oral hypoglycemic drugs; Z79.82 Long term (current) use of aspirin; Z79.899 Other long term (current) drug therapy

== ENCOUNTER 2017-10-13 17:57 | Emergency (ER) | payer OTHER ==
[~2017-10-13] VITALS: Ht 157.5 cm; Wt 70.5 kg
[~2017-10-13 17:57] MED LIST changes: -CEFAZOLIN 1000MG/55 ML D5W IV SCH; +METO-478 PO; -METO1TAB31 PO; +RXC5 PO; +SIMV10TA2 PO; -SODIUM CHLORIDE 0.9% 1000ML 1,000 ML IV SCH
[2017-10-13 18:09] VITALS: TEMP 36.7; Ht 157.5 cm; Wt 70.5 kg
[2017-10-13] MEDS ORDERED: SODIUM CHLORIDE 0.9% 1000ML 1,000 ML IV STA (19:50)
--- NOTE | 2017-10-13 19:57 | EMERGENCY ROOM VISIT NOTE ---
History Report prepared by Jovi: Alia Castillo Under the Supervision of: Dr. Fantasma Jones M.D. First contact with patient: 19:44 Chief Complaint: REFERRED BY DOCTOR Stated Complaint: KIDNEY AND ANEMIC-REF BY DOCTOR History of Present Illness The patient is a 67 year old female who presents to the Emergency Room with complaints of an episode of abnormal labs occurring yesterday. The patient has some outpatient labs done yesterday from her PCP's office. The patient reports her labs showed her kidney function was worse and she was anemic. She was referred to come to the ED for fluids. The patient follows up with Dr. Duong- Nephrology. The patient states urinates normally. She denies any headache dizziness, cough, congestion, urinary burning, blood in urine, chest pain, shortness of breath, nausea, or vomiting. Source of History: patient Onset: yesterday Position: other (generalized) Quality: other (abnormal labs) Timing: other (episode) Associated Symptoms: No headache, No cough, No chest pain, No SOB, No nausea , No vomiting, No urinary symptoms Review of Systems See HPI for pertinent positives and negatives. A total of ten systems were reviewed and were otherwise negative. Past Medical & Surgical Medical Problems: (1) Lumbar stenosis with neurogenic claudication Social History Smoking Status: Never Smoker Marital Status: Housing Status: lives with significant other Current/Historical Medications Scheduled Aspirin Enteric Coated (Ecotrin Or Generic), 81 MG PO DAILY Atorvastatin (Lipitor), 1 TAB PO DAILY Calcitriol (Rocaltrol Cap), 0.25 MCG PO MWF Calcium Carbonate-Vitamin D (Calcium/Vitamin D), 1 CAP BID Cephalexin (Keflex), 1 CAP PO BID Escitalopram (Lexapro), 10 MG PO QPM Ferrous Sulfate (Iron), 1 TAB PO BID Fish Oil (Lucernemines-3), 1 CAP PO BID Glimepiride (Glimepiride), 8 MG PO QAM Home O2 Therapy (Oxygen), 2 LITERS NA HS Liraglutide (Victoza), 1.2 MG INJ DAILY Metoprolol Succinate (Toprol Xl), 12.5 MG PO DAILY Ranitidine (Zantac), 150 MG PO BID Scheduled PRN Albuterol Sulfate (Proair Respiclick), 2 PUFFS INH Q4 PRN for SOB/Wheezing Allergies Coded Allergies: Morphine (Verified Allergy, Severe, ANGIOEDEMA, rash, pruritis, 10/12/16) pt developed sx s/p intra-articular injection perioperatively. followup suggested sx possibly d/t morphine Latex1 -Allergic Contact Dermititis (Verified Allergy, Unknown, itching, ) POLLEN (Verified Allergy, Unknown, hayfever, 10/12/16) Physical Exam Vital Signs Date Time Temp Pulse Resp B/P (MAP) Pulse Ox O2 Delivery O2 Flow Rate FiO2 10/13/17 23:16 66 16 128/65 98 Room Air 10/13/17 21:30 123/74 10/13/17 21:27 65 16 95 10/13/17 21:00 146/73 10/13/17 20:57 65 14 93 10/13/17 20:49 64 10/13/17 20:30 144/75 10/13/17 20:18 67 18 143/77 95 Room Air 10/13/17 18:09 36.7 89 20 139/84 96 Room Air Physical Exam GENERAL: Awake, alert, well-appearing, in no distress HENT: Normocephalic, atraumatic. Oropharynx unremarkable. Dry MM. EYES: Normal conjunctiva. Sclera non-icteric. NECK: Supple. No nuchal rigidity. FROM. No JVD. RESPIRATORY: Clear to auscultation. CARDIAC: Regular rate, normal rhythm. Extremities warm and well perfused. Pulses equal. ABDOMEN: Soft, non-distended. No tenderness to palpation. No rebound or guarding. No masses. RECTAL: Deferred. MUSCULOSKELETAL: Chest examination reveals no tenderness. The back is symmetrical on inspection without obvious abnormality. There is no CVA tenderness to palpation. No joint edema. LOWER EXTREMITIES: Calves are equal size bilaterally and non-tender. No edema. No discoloration. NEURO: Normal sensorium. No sensory or motor deficits noted. SKIN: No rash or jaundice noted. Medical Decision & Procedures ER Provider Diagnostic Interpretation: Radiology results as stated below per my review and radiologist interpretation: RENAL ULTRASOUND FINDINGS: Both kidneys are echogenic. There is moderate right and mild left renal cortical thinning. The right kidney measures 8.5 x 4.3 x 1.3 cm and the left measures 9.1 x 4.1 x 3.7 cm. There is no hydronephrosis. No calculi are identified by sonography. Both ureteral jets were identified. IMPRESSION: 1. No hydronephrosis. 2. Moderate right and mild left renal atrophy with increased renal echogenicity consistent with medical renal disease. Electronically signed by: Ángel Mckeon M.D. Laboratory Results 10/13/17 20:12 Red Blood Count 3.74, Mean Corpuscular Volume 90.6, Mean Corpuscular Hemoglobin 28.3, Mean Corpuscular Hemoglobin Concent 31.3, Mean Platelet Volume 9.8, Neutrophils (%) (Auto) 67.9, Lymphocytes (%) (Auto) 15.2, Monocytes (%) (Auto) 5.6, Eosinophils (%) (Auto) 10.7, Basophils (%) (Auto) 0.2, Neutrophils # (Auto ) 7.59, Lymphocytes # (Auto) 1.70, Monocytes # (Auto) 0.63, Eosinophils # (Auto ) 1.20, Basophils # (Auto) 0.02 10/13/17 20:12 Test 10/13/17 20:12 10/13/17 21:51 White Blood Count 11.19 K/uL (4.8-10.8) Red Blood Count 3.74 M/uL (4.2-5.4) Hemoglobin 10.6 g/dL (12.0-16.0) Hematocrit 33.9 % (37-47) Mean Corpuscular Volume 90.6 fL (80-100) Mean Corpuscular Hemoglobin 28.3 pg (25-34) Mean Corpuscular Hemoglobin Concent 31.3 g/dl (32-36) Platelet Count 357 K/uL (130-400) Mean Platelet Volume 9.8 fL (7.4-10.4) Neutrophils (%) (Auto) 67.9 % Lymphocytes (%) (Auto) 15.2 % Monocytes (%) (Auto) 5.6 % Eosinophils (%) (Auto) 10.7 % Basophils (%) (Auto) 0.2 % Neutrophils # (Auto) 7.59 K/uL (1.4-6.5) Lymphocytes # (Auto) 1.70 K/uL (1.2-3.4) Monocytes # (Auto) 0.63 K/uL (0.11-0.59) Eosinophils # (Auto) 1.20 K/uL (0-0.5) Basophils # (Auto) 0.02 K/uL (0-0.2) RDW Standard Deviation 51.9 fL (36.4-46.3) RDW Coefficient of Variation 15.5 % (11.5-14.5) Immature Granulocyte % (Auto) 0.4 % Immature Granulocyte # (Auto) 0.05 K/uL (0.00-0.02) Anion Gap 10.0 mmol/L (3-11) Est Creatinine Clear Calc Drug Dose 15.6 ml/min Estimated GFR () 16.7 Estimated GFR (Non- 14.4 BUN/Creatinine Ratio 12.4 (10-20) Calcium Level 9.3 mg/dl (8.5-10.1) Total Bilirubin 0.3 mg/dl (0.2-1) Direct Bilirubin 0.1 mg/dl (0-0.2) Aspartate Amino Transf (AST/SGOT) 7 U/L (15-37) Alanine Aminotransferase (ALT/SGPT) 11 U/L (12-78) Alkaline Phosphatase 127 U/L (45-117) Total Protein 8.3 gm/dl (6.4-8.2) Albumin 2.8 gm/dl (3.4-5.0) Lipase 289 U/L (73-393) Urine Color YELLOW Urine Appearance CLEAR (CLEAR) Urine pH 5.5 (4.5-7.5) Urine Specific [place] 1.008 (1.000-1.030) Urine Protein 1+ (NEG) Urine Glucose (UA) NEG (NEG) Urine Ketones NEG (NEG) Urine Occult Blood 2+ (NEG) Urine Nitrite NEG (NEG) Urine Bilirubin NEG (NEG) Urine Urobilinogen NEG (NEG) Urine Leukocyte Esterase MODERATE (NEG) Urine WBC (Auto) 10-30 /hpf (0-5) Urine RBC (Auto) 5-10 /hpf (0-4) Urine Hyaline Casts (Auto) 0 /lpf (0-5) Urine Epithelial Cells (Auto) >30 /lpf (0-5) Urine Bacteria (Auto) 1+ (NEG) Urine Random Creatinine 35.5 mg/dl Urine Random Sodium 43 mEq/L Laboratory results reviewed by me Medications Administered Medications (Trade) Dose Ordered Sig/Hardy Route Start Time Stop Time Status Last Admin Dose Admin Sodium Chloride 1,000 ml @ 999 mls/hr Q1H1M STAT IV 10/13/17 19:50 10/13/17 20:50 DC 10/13/17 20:31 999 MLS/HR Cephalexin Monohydrate (Keflex Cap) 500 mg NOW STAT PO 10/13/17 23:18 10/13/17 23:21 DC 10/13/17 23:33 500 MG ECG Indication: other (abnormal labs) Rate (beats per minute): 71 Rhythm: normal sinus Findings: no acute ischemic change, left axis deviation Comparison ECG Date: 10/08/17 Change: no significant change ED Course 1948: The patient was evaluated in room A11A. A complete history and physical exam was performed. 2108: I updated the patient on her test results. 2327: I reevaluated the patient. Discussed results and discharge instructions: She verbalized understanding and agreement. The patient is ready for discharge. Medical Decision I reviewed the patient's past medical history, medications, and the nursing notes as described above. Differential diagnoses include dehydration, electrolyte abnormality, CKD. Patient is a 67-year-old woman with a past history of CKD who presents to emergency department after having outpatient labs showing worsening creatinine compared to recent labs in August per hpi. On arrival the patient is well- appearing, afebrile stable vital signs. She denies any symptoms. Notable for acute on chronic renal insufficiency with creatinine of 3.14 is up from patient' s baseline creatinine back in August of 1.9. FeNa >1 suggesting intrinsic renal although patient does appear clinically dry and may involve some prerenal component. Renal US demonstrates mild renal atrophy. UA is a dirty sample however with 1+ bacteria thus will treat given the patient's worsening renal function and UTI may play a role. Plan for close outpatient f/u with patient's miller apprentice. Case management assisting to facilitate prompt f/u. Findings and plan for follow-up reviewed with patient. Patient agreeable and d/c'd per discharge instructions. Medication Reconcilliation Current Medication List: was personally reviewed by me Blood Pressure Screening Patient's blood pressure: Normal blood pressure Impression Primary Impression: Acute on chronic renal insufficiency Additional Impression: Urinary tract infection Scribe Attestation The scribe's documentation has been prepared under my direction and personally reviewed by me in its entirety. I confirm that the note above accurately reflects all work, treatment, procedures, and medical decision making performed by me. Departure Information Dispostion Home / Self-Care Prescriptions Cephalexin (KEFLEX) 250 Mg Cap 1 CAP PO BID for 7 Days, #14 CAP Prov: Fantasma Jones M.D. 10/13/17 Referrals Yumiko Pop M.D. (PCP) Forms HOME CARE DOCUMENTATION FORM, IMPORTANT VISIT INFORMATION, WORK / SCHOOL INSTRUCTIONS Patient Instructions ED Insufficiency Renal, ED UTI Cystitis Female, [facility] Additional Instructions Please follow up with your miller apprentice, Dr. Duong, in the next 1-3 days for re-evaluation. You were found to have worsening kidney function than your baseline. You were also found to have a possible urinary tract infection. Otherwise, your exam, renal ultrasound, and lab results did not show signs of an emergent condition at this time. Keflex as directed. Return to the emergency department for worsening symptoms as described in the accompanying instructions. Problem Qualifiers
[2017-10-13] MEDS ORDERED: ATOR10TA82 PO (20:00)
[2017-10-13] MEDS ORDERED: CALCCAP17 (20:00)
[2017-10-13] MEDS ORDERED: LIRA18IN INJ (20:00)
[2017-10-13] MEDS ORDERED: ASPI81TA21 PO (20:00)
[2017-10-13 20:23] LABS: BASO % 0.2 %; BASO ABS # 0.02 K/uL (0-0.2); EOS % 10.7 %; HEMATOCRIT 33.9 % (37-47); HEMOGLOBIN 10.6 g/dL (12.0-16.0); IG# 0.05 K/uL (0.00-0.02); LYMPH % 15.2 %; MEAN CELL VOLUME 90.6 fL (80-100); MEAN CORPUSCULAR HEMOGLOBIN 28.3 pg (25-34); MEAN CORPUSCULAR HGB CONC 31.3 g/dl (32-36); MEAN PLATELET VOLUME 9.8 fL (7.4-10.4); MONO % 5.6 %; MONO ABS # 0.63 K/uL (0.11-0.59); NEUT % 67.9 %; NEUT ABS # 7.59 K/uL (1.4-6.5); PLATELET COUNT 357 K/uL (130-400); RED CELL DISTRIBUTION WIDTH CV 15.5 % (11.5-14.5); RED CELL DISTRIBUTION WIDTH SD 51.9 fL (36.4-46.3); WHITE BLOOD COUNT 11.19 K/uL (4.8-10.8)
[2017-10-13 20:46] LABS: ALBUMIN 2.8 gm/dl (3.4-5.0); CALCIUM 9.3 mg/dl (8.5-10.1); CREATININE 3.14 mg/dl (0.60-1.20); POTASSIUM 3.4 mmol/L (3.5-5.1)
[2017-10-13 20:49] LABS: TOTAL PROTEIN 8.3 gm/dl (6.4-8.2)
[2017-10-13 22:51] LABS: CREATININE RANDOM URINE 35.5 mg/dl
--- NOTE | 2017-10-13 23:13 | DIAGNOSTIC IMAGING REPORT ---
RENAL ULTRASOUND CLINICAL HISTORY: Acute kidney injury. COMPARISON STUDY: None. TECHNIQUE: Sonography of the kidneys and the urinary bladder was performed. FINDINGS: Both kidneys are echogenic. There is moderate right and mild left renal cortical thinning. The right kidney measures 8.5 x 4.3 x 1.3 cm and the left measures 9.1 x 4.1 x 3.7 cm. There is no hydronephrosis. No calculi are identified by sonography. Both ureteral jets were identified. IMPRESSION: 1. No hydronephrosis. 2. Moderate right and mild left renal atrophy with increased renal echogenicity consistent with medical renal disease. Electronically signed by: Ángel Mckeon M.D. 10/13/2017 11:11 PM Dictated Date/Time: 10/13/2017 11:10 PM
[2017-10-13 23:16] VITALS: BP 128/65; PULSE 66; O2SAT 98
[2017-10-13] MEDS ORDERED: CEPHALEXIN MONOHYDRATE 250 MG CAP PO STA (23:18)
[2017-10-13] MEDS ORDERED: CEPH-570 PO (23:28)
== END 2017-10-13 23:45 | disposition home or self-care (01) ==
LOC: C.EDB 17:58 → C.EDA 23:45
DX: N18.9 Chronic kidney disease, unspecified (principal); N39.0 Urinary tract infection, site not specified; M48.062 Spinal stenosis, lumbar region with neurogenic claudication; Z79.82 Long term (current) use of aspirin; Z79.899 Other long term (current) drug therapy; Z88.5 Allergy status to narcotic agent; Z91.041 Radiographic dye allergy status

== ENCOUNTER → 2018-05-24 | Outpatient (CLI) | payer OTHER ==
[~2018-05-24] MED LIST changes: -ALBU18002 INH; +ASPCH81X PO; -ASPEC81 PO; +ATOR-22 PO; +BENZ100C84 PO; +CALC600T9 PO; -CLTP PO; +FLVHFA44 INH; -GLIM4TAB2 PO; +INSDGI SC; -METO-478 PO; +METO25TA4 PO; -MONT1TAB5 PO; +NVLGI/PEN SC; -OMEG10007 PO; +OMEGCAP2 PO; +PRED-301 PO; +RANI150T3 PO; -RXC5 PO; -SIMV10TA2 PO; +SULF400T7 PO; +VNTHFA/IN INH; -ZNTT/150 PO
--- NOTE | 2018-05-24 14:38 | DIAGNOSTIC IMAGING REPORT ---
VIDEO SWALLOW CLINICAL HISTORY: 67 years-old Female presenting with STROKE. TECHNIQUE: Video fluoroscopic evaluation of swallowing was performed in the AP and lateral projections in conjunction with speech pathology. The patient was administered various textures, including nectar-thick and thin liquid barium, a barium coated wafer, and barium pudding. COMPARISON: None. FINDINGS: There is normal hyoid excursion and epiglottic deflection. Silent aspiration of thin liquids. No significant penetration or aspiration identified with the remainder the administered textures.. Swallowing function is within normal limits. Fluoroscopy dosage (mGy): Not available. Fluoroscopy time: 1.8 minutes. Number or time of fluoroscopic spot images: 0. IMPRESSION: 1. Silent aspiration with thin liquids. 2. Please see the speech pathologist report for detailed findings and recommendations. Electronically signed by: Phill Gilliland M.D. 05/24/2018 2:37 PM Dictated Date/Time: 05/24/2018 2:33 PM
--- NOTE | 2018-05-24 15:07 | SWALLOWING EVALUATION ---
HISTORY: This 67 year old woman from [facility] was referred to [facility] ([facility]) for a Video Fluoroscopic Swallow Study (VFSS) in order to rule out aspiration, and identify the safest consistencies for oral intake. The patient is reporting difficulty swallowing foods such as bread or noodles, and that she will need to take a drink in order to clear these types of foods from her throat. PMH is significant for: DMII, HTN, OA, migraines, ESRD, anemia, GERD, obesity, spinal stenosis, and a recent left cerebellar CVA. Current diet is mechanical soft and thin. PROCEDURE: The patient was seen in the Radiology Department of [facility] for the VFSS. Cursory examination of the oral cavity revealed the patient to have upper and lower dentures of adequate fit. Movement of the articulators was wnl. The patient was positioned upright in a wheelchair for the procedure and was viewed in both the Anterior-Posterior (A-P) and Lateral planes. Volitional phonation exercises completed in the A-P plane revealed bilateral vocal fold movement. Vocal intensity was wnl. In the lateral plane, the patient was given the following boluses: 1 tsp. thin liquid barium x 2, single swallow thin liquid barium self-presented from a cup x2 (1 with a chin tuck), 1 tsp. nectar-thick liquid barium, single swallow nectar-thick liquid barium self-presented from a cup, 1 tsp. barium pudding, and 1 club cracker coated in barium pudding. The patient was then repositioned into the A-P plane and given the following boluses: 1 tsp. nectar thick barium, and 1 tsp. barium pudding. RESULTS: Oral Stage: Lip closure was adequate. The patient was able to maintain a cohesive liquid bolus in the oral cavity upon command. Mastication was mildly slow, as was lingual motion for bolus transport. There was a trace amount of residue along the tongue and palate after the initial swallow. The initiation of the pharyngeal swallow was delayed and triggered when the bolus head reached the pyriforms. Pharyngeal Stage: Soft palate elevation was complete. Laryngeal elevation revealed partial superior movement of the thyroid cartilage and partial approximation of the arytenoids to the epiglottic base. Anterior hyoid excursion was partially reduced. Epiglottic deflection was complete. Laryngeal vestibular closure was in-complete, as evidenced by a narrow column of contrast located in the vestibule at the height of the swallow. The pharyngeal stripping wave was present yet diminished. Pharyngeal contraction was complete. There was partial distention and duration to the opening of the pharyngoesophageal segment (PES). Tongue base retraction was reduced, with a narrow column of contrast located between the tongue base and pharyngeal wall during the swallow. There was trace retention in the valleculae and retention along the laryngeal aspect of the epiglottis after the swallow. There was evidence of laryngeal penetration and small amounts of aspiration/micro-aspiration with thin liquid barium. This aspiration was SILENT. A cough/throat clear (cued) did not assist in fully redirecting the aspirated liquid. A chin tuck did not assist to improve airway protection and SILENT aspiration continued to be evidenced. Retention along the laryngeal aspect of the epiglottis also trickled toward the open airway, increasing aspiration risk. There was no aspiration of the nectar thick liquid, pudding, or cracker boluses. There was no significant retention in the pharynx after the swallow. Aspiration attributed to the patient's delayed swallow. Esophageal Stage: There was mild mid esophageal retention. This is suggestive of esophageal dysmotility. SUMMARY/RECOMMENDATIONS: The patient presents with mild-moderate amaris-pharyngeal dysphagia. She also presents with s/s esophageal dysfunction. Therefore the following is recommended: 1. Dental soft diet and NECTAR thick liquids. 2. Aspiration and GERD precautions: NO STRAWS. FULLY UPRIGHT for meals and for 30 minutes after meals; head of bed at least 30-degrees at all times. 3. Safe swallow strategies: Small bites/sips. Alternate solids and liquids as needed. 4. Stringent oral care: brush all surfaces of the mouth and tongue prior to and after meals, and before bed. This will decrease the amount of oral bacteria that can be aspirated in saliva. 5. Follow up with outpatient speech therapy for further education on study results, carryover of diet/safe swallow strategies, and for thermal gustatory stimulation/DPNS. The patient would also benefit from a repeat video swallow study following her course of therapy due to her silent aspiration, and prior to any liquid advancement to thins for safety. A verbal and written summary (written summary provided on the consultation record provided by [facility]) of the results and recommendations were provided to the patient and her spouse (with her permission) with verbal understanding. Thank you for referral of this patient. Please contact me at if any additional information is needed.
--- NOTE | 2018-06-01 12:35 | CODING QUERY NO DIAGNOSIS ---
TREATMENT RENDERED WITHOUT A DIAGNOSIS To promote full compliance with coding requirements relating to patient care, physician participation is requested in all cases of crab steamer uncertainty. Please assist us with providing a diagnosis/symptom for the test(s) below: A diagnosis/symptom was not documented on your Order. A valid diagnosis/symptom is required to bill all insurances. Please remember that we are unable to code a diagnosis of rule out, probable, possible, questionable, or suspected. Tests that require a diagnosis: DOS: 05/24/18 * VIDEO SWALLOW DIAGNOSIS: Provider Signature: Date: Thank you Janet N[employer] Information Management Once completed, please kindly fax back to [phone] For questions please call [phone]
== END | disposition home or self-care (01) ==
LOC: C.RAD 13:14
PROVIDERS: ATTEND Internal Medicine Hospice and Palliative Medicine
DX: R13.12 Dysphagia, oropharyngeal phase (principal); K22.4 Dyskinesia of esophagus